=== PATIENT | male | born 1950 | race Caucasian/White ===

== ENCOUNTER → 2021-10-15 08:37 | Outpatient (BNVA) | payer MEDICARE, OTHER, SELFPAY | PROVIDERS: Family Provider Family Medicine; PCP Family Medicine; Visit Provider Family Medicine | DX: N40.0 Benign prostatic hyperplasia without lower urinary tract symptoms (principal); R73.01 Impaired fasting glucose; I10 Essential (primary) hypertension; E03.9 Hypothyroidism, unspecified | CPT/HCPCS: 80053; 80061; 83036; 84153; 84439; 84443; 85025 ==

== ENCOUNTER 2021-11-19 14:19 | Emergency (ER) | payer MEDICARE, OTHER, SELFPAY ==
[2021-11-19 15:37] VITALS: BP 130/89; PULSE 82; RESP 14; TEMP 37.3; O2SAT 97; BMI 26.6
[2021-11-19 16:09] VITALS: BP 130/89; PULSE 82; RESP 14; TEMP 37.3; O2SAT 97
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
[2021-11-19 16:49] VITALS: RESP 18
[2021-11-19] MEDS: morphine 4 mg/mL SDV 1 mL IM (16:49)
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
== END 2021-11-19 19:25 | disposition home or self-care (01) ==
PROVIDERS: Emergency Provider Physician Assistant; PCP Family Medicine
DX: S16.1XXA Strain of muscle, fascia and tendon at neck level, initial encounter (principal); S70.02XA Contusion of left hip, initial encounter; Z79.84 Long term (current) use of oral hypoglycemic drugs; Z87.891 Personal history of nicotine dependence; V89.2XXA Person injured in unspecified motor-vehicle accident, traffic, initial encounter
CPT/HCPCS: 70450; 72125; 72128; 72131; 72192; 73502; 96372; 99284; J2270

== ENCOUNTER → 2023-05-12 08:27 | Outpatient (BNVA) | payer MEDICARE, OTHER, SELFPAY | PROVIDERS: PCP Family Medicine; Visit Provider Family Medicine | DX: Z51.81 Encounter for therapeutic drug level monitoring (principal); E53.8 Deficiency of other specified B group vitamins; E03.9 Hypothyroidism, unspecified; R35.0 Frequency of micturition; Z13.220 Encounter for screening for lipoid disorders; E11.9 Type 2 diabetes mellitus without complications | CPT/HCPCS: 80053; 80061; 82607; 83036; 84153; 84439; 84443; 85025 ==

== ENCOUNTER 2023-06-29 11:48 | Outpatient (CLI) | payer MEDICARE, OTHER, SELFPAY ==
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
== END 2023-06-29 11:49 | disposition home or self-care (01) ==
LOC: RAD 11:50
PROVIDERS: PCP Family Medicine; Visit Provider Family Medicine
DX: N45.3 Epididymo-orchitis (principal)
CPT/HCPCS: 76870

== ENCOUNTER → 2024-03-31 08:16 | Outpatient (BNVA) | payer MEDICARE, OTHER, SELFPAY | PROVIDERS: PCP Family Medicine; Visit Provider Family Medicine | DX: Z13.220 Encounter for screening for lipoid disorders (principal); E11.9 Type 2 diabetes mellitus without complications; E53.8 Deficiency of other specified B group vitamins; E03.9 Hypothyroidism, unspecified; N40.0 Benign prostatic hyperplasia without lower urinary tract symptoms; R30.0 Dysuria; Z51.81 Encounter for therapeutic drug level monitoring | CPT/HCPCS: 80053; 80061; 82607; 83036; 84153; 84439; 84443; 85025; 87086 ==

== ENCOUNTER 2024-07-10 06:00 | Outpatient (CLI) | payer MEDICARE, OTHER, SELFPAY | END 2024-07-10 06:01 | disposition home or self-care (01) | LOC: LAB 07-11 13:12 | PROVIDERS: PCP Family Medicine; Visit Provider Family Medicine | DX: Z51.81 Encounter for therapeutic drug level monitoring (principal); Z00.00 Encounter for general adult medical examination without abnormal findings; E11.9 Type 2 diabetes mellitus without complications; N40.0 Benign prostatic hyperplasia without lower urinary tract symptoms; E53.8 Deficiency of other specified B group vitamins | CPT/HCPCS: 80053; 80061; 82607; 83036; 84153; 85025 ==

== ENCOUNTER 2024-08-10 08:51 | Outpatient (CLI) | payer MEDICARE, OTHER, SELFPAY ==
--- NOTE | 2024-08-10 08:33 | ECG_ITS ---
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 The perfusion scan will be documented separately. DATA: Baseline heart rate was 64 beats per minute. Baseline blood pressure was 153/81 millimeters of mercury. Target heart rate was 149. Maximum heart rate achieved was 98. which was 65% of the predicted target heart rate. Maximum blood pressure was 181/89 millimeters of mercury. The reason for ending the test was completion of the protocol. The patient did not experience any symptoms. ELECTROCARDIOGRAM: BASELINE: Sinus rhythm. Normal axis. Otherwise, no ST-T changes suggestive of ischemia noted. No arrhythmia noted. EXERCISE: After Lexiscan injection, no ST-T changes suggestive of ischemic noted. No arrhythmia noted. CONCLUSION: Please note due to baseline abnormality of the EKG specificity and sensitivity of the EKG portion of LexiScan MIBI stress test will be low 1. EKG not suggestive of ischemia 2. Lexiscan injection unremarkable. 3. Perfusion scan will be documented separately. Electronically Signed On 08-20-2024 17:25:22 CDT by STEPHANIE WORRELL [email or web address]
--- NOTE | 2024-08-10 08:34 | NMCV_ITS ---
NM aga perf SPECT r/s* [id number] Jag Spears Age: 73 Gender: M : 1950 Exam Date: 08/10/2024 09:42 Ordering Phys: Jamie Sykes MD Technologist: JUNIOR Ibrahim Exam Location: [facility] Indications: cp STRESS TEST Please see separate stress test report in [facility] for full findings IMAGE PROTOCOL Rest/Stress 1 Lexiscan Day Radiopharmaceutical Dose (mCi) Administration Site Administered by Rest: Tc-99m 10.9 IV Beckie Barba, VESSEL LINER Sestamibi Stress:Tc-99m 33 IV Beckie Alonzoe, VESSEL LINER Sestamibi Rest: 10-Aug-2024 60 Discovery 630 Stress: 10-Aug-2024 30 Discovery 630 0.4mg Lexiscan. Images obtained in supine and prone position. SPECT RESULTS Technical Quality: Good Raw Data Analysis: Normal Image Corrections: No attenuation or motion correction applied Summed Stress Score: 0 Summed Rest Score: 0 Summed Difference Score: 0 PERFUSION FINDINGS SPECT images demonstrate homogeneous tracer distribution throughout the myocardium. FUNCTIONAL RESULTS (calculated via Gated SPECT) Stress Image LV EF (%): 72 Stress EDV (mL):76 TID: 0.95 Stress ESV (mL):21 FUNCTIONAL FINDINGS: There is normal left ventricular systolic function. IMPRESSIONS Myocardial perfusion imaging is normal. Anibal Nam MD (Electronically Signed) Final Date: 15 Aug 2024 13:07 S
[2024-08-10 09:04] VITALS: BMI 25.1
[2024-08-10] MEDS: regadenoson 0.4 Mg/5 ml Syringe IVP (10:24)
[2024-08-10 10:40] VITALS: BP 156/87; PULSE 80
--- NOTE | 2024-08-10 13:30 | USCV_ITS ---
Jag Spears Age: 73 Gender: M : 1950 Exam Date: 08/10/2024 09:14 Ordering Phys: Jamie Sykes MD Technologist: Exam [place] [facility] [place]: Aneurysm of ascending ao BP: 140 / 80 HR: 61 Rhythm: Sinus Technical Quality: Adequate MEASUREMENTS (Male / Female) Normal Values 2D ECHO LV Diastolic Diameter PLAX 4.2 cm 4.2 - 5.9 / 3.9 - 5.3 cm IVS Diastolic Thickness 1.2 cm 0.6 - 1.0 / 0.6 - 0.9 cm IVS Systolic Thickness 1.8 cm LVPW Diastolic Thickness 1.1 cm 0.6 - 1.0 / 0.6 - 0.9 cm LVPW Systolic Thickness 1.9 cm LVOT Diameter 2.1 cm LV Ejection Fraction 2D Teich 61.1 % LV Ejection Fraction MOD 4C 67.2 % LV Ejection Fraction MOD 2C 67.0 % LV Ejection Fraction 2C AL 70.1 % LA Diameter 3.5 cm RA Systolic Volume 4C AL 39.5 ml RA Systolic Volume 4C MOD 35.5 ml Aorta at Sinotubular Diameter 3.5 cm IVC Diameter 2.2 cm DOPPLER AV Peak Velocity 107.0 cm/s LVOT Peak Velocity 96.0 cm/s AV Area Cont Eq vti 3.9 cm squared AV Area Cont Eq pk 3.1 cm squared MV Peak Velocity 121.0 cm/s MV Area PHT 2.4 cm squared Mitral E to A Ratio 0.7 TV Peak Velocity 229.5 cm/s TR Peak Velocity 247.0 cm/s TR Peak Gradient 24.4 mmHg TV Peak E Velocity 70.0 cm/s PV Peak Velocity 124.0 cm/s FINDINGS Left Ventricle Normal left ventricular size, systolic function and wall thickness, with no regional wall motion abnormalities. Left ventricular ejection fraction is estimated at 60 %. Grade I/IV diastolic dysfunction (abnormal relaxation filling pattern), normal to mildly elevated filling pressures. Right Ventricle The right ventricle is normal in size and function. Right Atrium The right atrium is normal in size. Left Atrium The left atrium is normal in size. Mitral Valve Moderately thickened mitral valve. No mitral valve stenosis. Mild-moderate mitral valve regurgitation. Aortic Valve Mild aortic valve calcification. No aortic valve stenosis. Mild aortic valve regurgitation. Tricuspid Valve Structurally normal tricuspid valve without significant stenosis or regurgitation. Pulmonary artery systolic pressure is normal. Pulmonic Valve Structurally normal pulmonic valve without significant stenosis. There is no pulmonic regurgitation. Pericardium Normal pericardium without effusion. Aorta Normal ascending aorta dimension. IVC The inferior vena cava appears normal. CONCLUSIONS Normal left ventricular size, systolic function and wall thickness, with no regional wall motion abnormalities. Left ventricular ejection fraction is estimated at 60 %. Grade I/IV diastolic dysfunction (abnormal relaxation filling pattern), normal to mildly elevated filling pressures. Mild aortic valve calcification. No aortic valve stenosis. Mild aortic valve regurgitation. Moderately thickened mitral valve. No mitral valve stenosis. Mild-moderate mitral valve regurgitation. There is no pericardial effusion. Right atrial pressure is around 5 mm of mercury. Anibal Nam MD (Electronically Signed) Final Date: 11 Aug 2024 13:06 S
== END 2024-08-10 08:52 | disposition home or self-care (01) ==
LOC: CDL 08:54
PROVIDERS: PCP Family Medicine; Visit Provider Family Medicine
DX: R07.9 Chest pain, unspecified (principal); R06.09 Other forms of dyspnea; I77.810 Thoracic aortic ectasia; R93.1 Abnormal findings on diagnostic imaging of heart and coronary circulation; I34.0 Nonrheumatic mitral (valve) insufficiency; I35.8 Other nonrheumatic aortic valve disorders; I35.1 Nonrheumatic aortic (valve) insufficiency
CPT/HCPCS: 36415; 78452; 93017; 93306; 96374; A9500; J2785

== ENCOUNTER 2024-09-06 06:49 | Outpatient (CLI) | payer MEDICARE, OTHER, SELFPAY ==
--- NOTE | 2024-09-06 07:00 | CT_ITS ---
WS: [id number] CT chest wo con [id number] HISTORY: Lung nodule TECHNIQUE: Axial imaging performed through the thorax. Coronal and sagittal reformats are submitted. All CT scans at [facility] use at least one of these dose optimization techniques: automated exposure control; mA and/or kV adjustment per patient size (includes targeted exams where dose is matched to clinical indication); or iterative reconstruction. CONTRAST: None DLP: 418.99 mGy.cm COMPARISON: 10/22/2017 Lungs and central airway: Normally aerated lungs. There are noncalcified and calcified pulmonary nodules identified. Several very small, 2 to 3 mm noncalcified nodules are identified. These nodules were present in 2018 without increase in size. Majority of these nodules are in the RIGHT lung. Pleura: Normal. No pleural effusion. Heart and pericardium: Normal size heart with no pericardial effusion. Mediastinum and jil: Small calcified mediastinal and hilar lymph nodes. No adenopathy. Vessels: Mildly ectatic aorta. Very mildly prominent pulmonary artery. Chest wall and lower neck: No soft tissue masses. Upper abdomen: Cholelithiasis without acute cholecystitis. Splenic granulomata. Fatty replacement of the pancreas. Osseous structures: No destructive bone lesions. Bony expansion of the posterior medial RIGHT T4 rib was also present on the prior study and may be from a prior fracture. CT/CT chest wo con [id number] IMPRESSION: 1. Calcified and noncalcified pulmonary nodules. The noncalcified nodules were present in 2018 without increase in size. No new suspicious nodules identified . 2. Mild ectasia thoracic aorta. 3. Cholelithiasis without acute cholecystitis. 4. Splenic granulomata.
== END 2024-09-06 06:50 | disposition home or self-care (01) ==
PROVIDERS: PCP Family Medicine; Visit Provider Family Medicine
DX: R91.8 Other nonspecific abnormal finding of lung field (principal); I77.810 Thoracic aortic ectasia; K80.20 Calculus of gallbladder without cholecystitis without obstruction; D73.89 Other diseases of spleen; R59.0 Localized enlarged lymph nodes; R93.89 Abnormal findings on diagnostic imaging of other specified body structures; K86.89 Other specified diseases of pancreas
CPT/HCPCS: 71250

== ENCOUNTER → 2024-12-25 15:40 | Outpatient (BNVA) | payer MEDICARE, OTHER, SELFPAY | PROVIDERS: PCP Family Medicine; Visit Provider Family Medicine | DX: R30.0 Dysuria (principal); N39.0 Urinary tract infection, site not specified | CPT/HCPCS: 81000; 87086 ==